=== PATIENT | female | born 1995 | race Caucasian/White ===

== ENCOUNTER → 2021-02-24 15:15 | Outpatient (CLI) | payer OTHER, SELFPAY ==
--- NOTE | 2021-02-24 15:20 | DI.RAD.S_ITS ---
PROCEDURE: XR WRIST LT MIN 3V INDICATIONS: LT THUMB/PALM/WRIST PAIN TECHNIQUE: 3 views of the wrist were acquired. COMPARISON: None. FINDINGS: Bones: No fractures or dislocations. No suspicious bony lesions. Scaphoid view: Intact. Soft tissues: No suspicious soft tissue calcifications. IMPRESSION: No acute osseous abnormality. Dictated by: Quique Lawson M.D. on 02/24/2021 at 16:07 Approved by: Quique Lawson M.D. on 02/24/2021 at 16:08
--- NOTE | 2021-02-24 15:20 | DI.RAD.S_ITS ---
PROCEDURE: XR HAND LT MIN 3V INDICATIONS: LT THUMB/PALM/WRIST PAIN TECHNIQUE: 3 views of the hand(s) acquired. COMPARISON: None. FINDINGS: Bones: No fractures or dislocations. Carpal bones are normally aligned. No suspicious bony lesions. Soft tissues: No suspicious soft tissue calcifications. IMPRESSION: No acute osseous abnormality. Dictated by: Quique at 16:08 Brijesh Lawson on 02/24/2021 Approved by: Quique Lawson M.D. on 02/24/2021 at 16:09
== END ==
PROVIDERS: PCP Family Medicine; Referring Provider Internal Medicine; Visit Provider Internal Medicine
DX: M79.645 Pain in left finger(s) (principal); M25.532 Pain in left wrist
CPT/HCPCS: 73110; 73130